=== PATIENT | female | born 1960 | race Caucasian/White ===

== ENCOUNTER → 2016-09-30 | Outpatient (CLI) | payer OTHER ==
[~2016-09-30] MED LIST: ALPRAZOLAM0.5 MG PO; HORMONE PATCH TD; NORCO 10-325 T1 EACH PO; PROZAC20 MG PO; SEROQUEL100 MG PO
== END ==
LOC: MAMO 11:40
DX: Z12.31 Encounter for screening mammogram for malignant neoplasm of breast (principal); R05 Cough
CPT/HCPCS: 71020; G0202

== ENCOUNTER → 2020-05-23 | Outpatient (CLI) | payer OTHER ==
[~2020-05-23] MED LIST changes: +CARAFATE1 GM PO; +LODINE CAP 300300 MG PO; +NORCO 5-325 TA1 EACH PO; +PROTONIX 20 MG20 MG PO; +PROTONIX20 MG PO
== END ==
LOC: KOH-I 09:00
DX: S92.025A Nondisplaced fracture of anterior process of left calcaneus, initial encounter for closed fracture (principal); S92.192A Other fracture of left talus, initial encounter for closed fracture; X58.XXXA Exposure to other specified factors, initial encounter
CPT/HCPCS: 73700

== ENCOUNTER → 2020-05-29 | Outpatient (CLI) | payer OTHER | LOC: KOH-I 14:22 | DX: S92.102A Unspecified fracture of left talus, initial encounter for closed fracture (principal); X58.XXXA Exposure to other specified factors, initial encounter | CPT/HCPCS: 73630 ==

== ENCOUNTER → 2020-06-29 | Outpatient (CLI) | payer OTHER | LOC: KOH-I 11:07 | DX: S92.002A Unspecified fracture of left calcaneus, initial encounter for closed fracture (principal); S92.102A Unspecified fracture of left talus, initial encounter for closed fracture; X58.XXXA Exposure to other specified factors, initial encounter | CPT/HCPCS: 73630 ==

== ENCOUNTER → 2020-07-24 | Outpatient (CLI) | payer OTHER | LOC: EXRD 07-11 08:30 | DX: M81.0 Age-related osteoporosis without current pathological fracture (principal); M85.89 Other specified disorders of bone density and structure, multiple sites | CPT/HCPCS: 77080 ==

== ENCOUNTER → 2020-08-21 | Outpatient (CLI) | payer OTHER | LOC: KOH-I 13:45 | DX: S93.492A Sprain of other ligament of left ankle, initial encounter (principal); S92.022A Displaced fracture of anterior process of left calcaneus, initial encounter for closed fracture; R60.0 Localized edema; X58.XXXA Exposure to other specified factors, initial encounter | CPT/HCPCS: 73721 ==

== ENCOUNTER 2021-06-08 11:01 | Emergency (ER) | payer OTHER ==
[2021-06-08 12:53] LABS: BUN/CREATININE RATIO 22 (0-10)
[2021-06-08 13:20] LABS: HEMOGLOBIN 12.3 gm/dl (12.3-15.3); RED BLOOD COUNT 4.56 M/UL (4.00-5.10); WHITE BLOOD COUNT 8.6 K/UL (4.5-11.0)
[2021-06-08] MEDS ORDERED: ZOFRAN 4 MG TAB4 MG PO (16:54)
== END 2021-06-08 17:04 | disposition home or self-care (01) ==
LOC: ER1 11:01
PROVIDERS: Physician Assistant
DX: R10.9 Unspecified abdominal pain (principal); R10.817 Generalized abdominal tenderness; I10 Essential (primary) hypertension; F17.210 Nicotine dependence, cigarettes, uncomplicated; R11.2 Nausea with vomiting, unspecified; Z90.710 Acquired absence of both cervix and uterus; Z90.49 Acquired absence of other specified parts of digestive tract; Z20.822 Contact with and (suspected) exposure to COVID-19
CPT/HCPCS: 80053; 81001; 82150; 83690; 85025; 96374; 96375; 99284; J2270; J2405; Q9967; U0002

== ENCOUNTER 2021-06-10 12:05 | Emergency (ER) | payer OTHER ==
[~2021-06-10 12:05] MED LIST changes: +ZOFRAN 4 MG TAB4 MG PO
[2021-06-10 12:37] LABS: HEMOGLOBIN 12.2 gm/dl (12.3-15.3); RED BLOOD COUNT 4.45 M/UL (4.00-5.10); WHITE BLOOD COUNT 7.5 K/UL (4.5-11.0)
[2021-06-10 13:02] LABS: BUN/CREATININE RATIO 22 (0-10)
[2021-06-10] MEDS ORDERED: BENTYL 10MG CAP10 MG PO (13:31)
[2021-06-10] MEDS ORDERED: LINZESS145 MCG PO (13:49)
== END 2021-06-10 14:10 | disposition home or self-care (01) ==
LOC: ER1 12:05
PROVIDERS: Physician Assistant
DX: R10.9 Unspecified abdominal pain (principal); F17.210 Nicotine dependence, cigarettes, uncomplicated; I10 Essential (primary) hypertension; G89.29 Other chronic pain
CPT/HCPCS: 80053; 83605; 83690; 85025; 96374; 96375; 99284; C9113; J2270; J2765

== ENCOUNTER 2021-10-26 14:21 | Emergency (ER) | payer OTHER ==
[~2021-10-26 14:21] MED LIST changes: +BENTYL 10MG CAP10 MG PO; +LINZESS145 MCG PO
== END 2021-10-26 16:25 | disposition home or self-care (01) ==
LOC: ER1 14:21
DX: S93.402A Sprain of unspecified ligament of left ankle, initial encounter (principal); I10 Essential (primary) hypertension; Z79.899 Other long term (current) drug therapy; F17.210 Nicotine dependence, cigarettes, uncomplicated; W01.0XXA Fall on same level from slipping, tripping and stumbling without subsequent striking against object, initial encounter; Y93.E5 Activity, floor mopping and cleaning; Y92.009 Unspecified place in unspecified non-institutional (private) residence as the place of occurrence of the external cause
CPT/HCPCS: 73610; 73630; 99283